=== PATIENT | female | born 1990 | race Caucasian/White ===

== ENCOUNTER 2018-06-22 14:55 | Outpatient (CLI) | payer MEDICAID ==
[~2018-06-22 14:55] MED LIST: IBUP-1223 PO; OXYC-302 PO
== END 2018-06-22 23:59 | disposition home or self-care (01) ==
LOC: RAD 14:55
PROVIDERS: ATTEND Emergency Medicine
DX: N83.202 Unspecified ovarian cyst, left side (principal)
CPT/HCPCS: 76830

== ENCOUNTER 2019-01-28 17:25 | Emergency (ER) | payer MEDICAID ==
[~2019-01-28] VITALS: Ht 154.9 cm; Wt 45.0 kg
[2019-01-28 21:48] VITALS: BP 100/50
== END 2019-01-28 22:14 | disposition home or self-care (01) ==
LOC: ED 20:58
DX: A08.4 Viral intestinal infection, unspecified (principal); E86.0 Dehydration; R10.13 Epigastric pain; R10.33 Periumbilical pain
CPT/HCPCS: 36415; 71045; 80053; 81003; 81025; 83690; 85025; 93005; 96372; 96374; 96375; 96376; 99284; J2270; J2405; J2550; J7030; Q0162

== ENCOUNTER 2019-11-25 02:11 | Inpatient (IN) | payer MEDICAID ==
[~2019-11-25] VITALS: Ht 154.9 cm; Wt 60.0 kg
[2019-11-25 02:37] VITALS: BP 108/72
[2019-11-25] MEDS ORDERED: LIDOCAINE 1%, 20ML ONE (02:49)
[2019-11-25] MEDS ORDERED: MISOPROSTOL 200 MCG TABLET ONE (02:49)
[2019-11-25] MEDS ORDERED: NEWBORN KIT ONE (02:49)
[2019-11-25] MEDS ORDERED: OXYTOCIN 30U/ 0.9% NaCL 500ML 500 ML IV ONE (02:52)
[2019-11-25] MEDS ORDERED: D5%-LACTATED RINGERS 1,000 ML IV SCH (02:52)
[2019-11-25] MEDS ORDERED: OXYTOCIN 30U/ 0.9% NaCL 500ML 500 ML IV PRN (02:52)
[2019-11-25] MEDS ORDERED: LACTATED RINGERS 1,000 ML IV SCH ×2 (02:52→02:54)
[2019-11-25] MEDS ORDERED: FENTANYL/BUPIV./NS/PF 250 ML EPIDCONT SCH (02:54)
[2019-11-25] MEDS ORDERED: TERBUTALINE 1 MG/ML, 1ML SQ PRN (03:00)
[2019-11-25] MEDS ORDERED: EPHEDRINE 50 MG/ML, 1ML IVPush PRN (03:00)
[2019-11-25] MEDS ORDERED: ONDANSETRON 2MG/ML, 2ML IVPush PRN (03:00)
[2019-11-25] MEDS ORDERED: CALCIUM CARBONATE 500 MG TAB.CHEW PO PRN (03:00)
[2019-11-25] MEDS ORDERED: FENTANYL PF 100 MCG/2ML IV PRN (03:00)
[2019-11-25] MEDS ORDERED: LACTATED RINGERS 1,000 ML IVBOLUS PRN (03:00)
[2019-11-25] MEDS ORDERED: TERBUTALINE 1 MG/ML, 1ML IVPush PRN (03:00)
[2019-11-25 03:19] LABS: BASOPHILS # (AUTO) 0.02 x10^3/uL (0-0.1); BASOPHILS % (AUTO) 0 % (0-1); EOSINOPHILS # (AUTO) 0.11 x10^3/uL (0-0.4); EOSINOPHILS % (AUTO) 1 % (1-7); LYMPHOCYTES # (AUTO) 1.57 x10^3/uL (1-3.4); LYMPHOCYTES % (AUTO) 18 % (22-44); MD NO; MEAN CORPUSCULAR HEMOGLOBIN 31.5 pg (27.0-34.8); MEAN CORPUSCULAR HGB CONC 33.4 g/dL (32.4-35.8); MEAN CORPUSCULAR VOLUME 94.4 fL (80-100); MEAN PLATELET VOLUME 9.6 fL (7.4-10.4); MONOCYTES # (AUTO) 0.52 x10^3/uL (0.2-0.8); MONOCYTES % (AUTO) 6 % (2-9); NEUTROPHILS # (AUTO) 6.32 x10^3/uL (1.8-6.8); NEUTROPHILS % (AUTO) 74 % (42-75); PLATELET COUNT 151 x10^3/uL (130-400); RED BLOOD COUNT 3.85 x10^6/uL (3.82-5.3); RED CELL DISTRIBUTION WIDTH 14.5 % (9.6-15.2)
[2019-11-25] MEDS ORDERED: OXYTOCIN 30U/ 0.9% NaCL 500ML 500 ML ONE ×2 (03:24→10:11)
[2019-11-25] MEDS ORDERED: FENTANYL PF 100 MCG/2ML ONE ×3 (05:09→07:34)
[2019-11-25] MEDS: FENTANYL PF 100 MCG/2ML IVPush PRN ×3 (05:11→07:38)
[2019-11-25 07:06] VITALS: BP 106/64
[2019-11-25] MEDS ORDERED: PREN1TAB60 PO (07:11)
[2019-11-25] MEDS ORDERED: FENTANYL/BUPIV./NS/PF 0 ML EPIDCONT ONE (08:18)
[2019-11-25] MEDS ORDERED: IBUPROFEN 600 MG TABLET ONE (09:21)
[2019-11-25] MEDS: IBUPROFEN 600 MG TABLET PO PRN ×2 (09:26→19:56)
[2019-11-25] MEDS ORDERED: OXYcodone IR 5MG TABLET PO PRN (09:30)
[2019-11-25] MEDS ORDERED: MISOPROSTOL 200 MCG TABLET PR PRN (09:30)
[2019-11-25] MEDS ORDERED: SIMETHICONE 80 MG CHEW TAB PO PRN (09:30)
[2019-11-25] MEDS ORDERED: ACETAMINOPHEN 325 MG TABLET PO PRN (09:30)
[2019-11-25] MEDS: OXYTOCIN 30U/ 0.9% NaCL 500ML 500 ML IV SCH ×2 (10:14→19:21)
[2019-11-25] MEDS ORDERED: OXYcodone/APAP 5/325MG TABLET ONE (10:54)
[2019-11-25] MEDS ORDERED: OXYcodone IR 5MG TABLET ONE (10:57)
[2019-11-25 11:08] VITALS: BP 100/64
[2019-11-25 12:59] VITALS: BP 110/69
[2019-11-25 16:49] VITALS: BP 104/61
[2019-11-25 17:01] LABS: BASOPHILS # (AUTO) 0.04 x10^3/uL (0-0.1); BASOPHILS % (AUTO) 0 % (0-1); EOSINOPHILS # (AUTO) 0.14 x10^3/uL (0-0.4); EOSINOPHILS % (AUTO) 1 % (1-7); LYMPHOCYTES # (AUTO) 1.12 x10^3/uL (1-3.4); LYMPHOCYTES % (AUTO) 10 % (22-44); MEAN CORPUSCULAR HEMOGLOBIN 31.9 pg (27.0-34.8); MEAN CORPUSCULAR HGB CONC 33.8 g/dL (32.4-35.8); MEAN CORPUSCULAR VOLUME 94.4 fL (80-100); MEAN PLATELET VOLUME 9.2 fL (7.4-10.4); MONOCYTES # (AUTO) 0.37 x10^3/uL (0.2-0.8); MONOCYTES % (AUTO) 3 % (2-9); NEUTROPHILS # (AUTO) 9.52 x10^3/uL (1.8-6.8); NEUTROPHILS % (AUTO) 85 % (42-75); PLATELET COUNT 127 x10^3/uL (130-400); RED BLOOD COUNT 3.82 x10^6/uL (3.82-5.3); RED CELL DISTRIBUTION WIDTH 14.3 % (9.6-15.2)
[2019-11-25 17:02] LABS: MD NO
[2019-11-25] MEDS: DOCUSATE 100 MG CAPSULE PO PRN (19:56)
[2019-11-25 20:37] VITALS: BP 106/71
[2019-11-26 01:30] VITALS: BP 102/68
[2019-11-26] MEDS: IBUPROFEN 600 MG TABLET PO PRN ×2 (02:03→08:15)
[2019-11-26 04:32] VITALS: BP 106/73
[2019-11-26] MEDS: OXYTOCIN 30U/ 0.9% NaCL 500ML 500 ML IV SCH (05:21)
[2019-11-26 08:00] VITALS: BP 108/58
[2019-11-26] MEDS: DOCUSATE 100 MG CAPSULE PO PRN (08:14)
[2019-11-26] MEDS ORDERED: PRENATAL VIT/IRON/FA 1 EACH TABLET PO SCH (09:00)
[2019-11-26] MEDS ORDERED: IBUP-1222 PO (09:23)
[2019-11-26] MEDS ORDERED: CHOL10003 PO (09:25)
== END 2019-11-26 14:15 | disposition home or self-care (01) | DRG 807 ==
LOC: LDOP 02:11 → LDIP 02:14 → 2NW 11:03
PROVIDERS: ADMIT Student in an Organized Health Care Education/Training Program; ATTEND Student in an Organized Health Care Education/Training Program
PROC: 10E0XZZ Delivery of Products of Conception, External Approach (ICD-10-PCS; principal; 2019-11-25)
PROC: 0KQM0ZZ Repair Perineum Muscle, Open Approach (ICD-10-PCS; 2019-11-25)
DX: O42.02 Full-term premature rupture of membranes, onset of labor within 24 hours of rupture (principal); Z37.0 Single live birth; Z90.721 Acquired absence of ovaries, unilateral; O70.1 Second degree perineal laceration during delivery; Z88.8 Allergy status to other drugs, medicaments and biological substances; Z3A.37 37 weeks gestation of pregnancy
CPT/HCPCS: 36415; 84112; 85025; 86592; 86850; 86900; G0378; J3010; J2590; J7120

== ENCOUNTER 2019-11-30 13:38 | Emergency (ER) | payer MEDICAID ==
[~2019-11-30] VITALS: Ht 154.9 cm; Wt 56.5 kg
[~2019-11-30 13:38] MED LIST changes: +CHOL10003 PO; +IBUP-1222 PO; +PREN1TAB60 PO
[2019-11-30 13:49] VITALS: BP 122/84
--- NOTE | 2019-11-30 14:33 | NUR ---
[facility], NADN.
--- NOTE | 2019-11-30 14:49 | NUR ---
PT C/O GERALIZED ACHE AFTER MILK CAME IN 3 DAYS AGO. PT GAVE 5 DAYS AGO. PT STATES HER BREASTS DO NOT FEEL EMPTY AFTER BABY BREAST FEEDS OR AFTER PUMPING. PT GIVEN BASIN TO SELF EXPRESS MILK D/T FULLNESS. CONNECTED TO MONITORING. CALL LIGHT IN REACH.
[2019-11-30] MEDS ORDERED: IBUPROFEN 600 MG TABLET ONE (15:20)
--- NOTE | 2019-11-30 15:22 | NUR ---
MEDS ADMIN PER AUG. HERMAN COLLECTED AND SENT TO LAB.
[2019-11-30] MEDS ORDERED: IBUPROFEN 200 MG TABLET PO ONE (15:30)
[2019-11-30 15:38] LABS: MICROSCOPIC INDICATED
[2019-11-30 15:45] LABS: ANION GAP 4 mmol/L (5-15); CALCIUM 8.7 mg/dL (8.5-10.1); CHLORIDE 114 mmol/L (98-107); CREATININE 0.68 mg/dL (0.55-1.02)
[2019-11-30 15:47] LABS: BASOPHILS # (AUTO) 0.02 x10^3/uL (0-0.1); BASOPHILS % (AUTO) 0 % (0-1); EOSINOPHILS % (AUTO) 2 % (1-7); LYMPHOCYTES # (AUTO) 0.52 x10^3/uL (1-3.4); LYMPHOCYTES % (AUTO) 10 % (22-44); MD NO; MEAN CORPUSCULAR HGB CONC 33.9 g/dL (32.4-35.8); MEAN CORPUSCULAR VOLUME 94.3 fL (80-100); MEAN PLATELET VOLUME 7.1 fL (7.4-10.4); MONOCYTES # (AUTO) 0.31 x10^3/uL (0.2-0.8); MONOCYTES % (AUTO) 6 % (2-9); NEUTROPHILS # (AUTO) 4.46 x10^3/uL (1.8-6.8); NEUTROPHILS % (AUTO) 83 % (42-75); PLATELET COUNT 234 x10^3/uL (130-400); RED BLOOD COUNT 4.04 x10^6/uL (3.82-5.3); RED CELL DISTRIBUTION WIDTH 14.1 % (9.6-15.2)
--- NOTE | 2019-11-30 15:58 | NUR ---
ALL RESULTS ARE BACK AT THIS TIME. CHART UP FOR RECHECK.
== END 2019-11-30 16:12 | disposition home or self-care (01) ==
LOC: ED 15:56
DX: N30.01 Acute cystitis with hematuria (principal); Z20.818 Contact with and (suspected) exposure to other bacterial communicable diseases; M79.10 Myalgia, unspecified site; Z90.721 Acquired absence of ovaries, unilateral
CPT/HCPCS: 36415; 80048; 81001; 82040; 85025; 87086; 99283; U0001